=== PATIENT | female | born 1990 | race Caucasian/White ===

== ENCOUNTER 2019-11-17 11:58 | Emergency (ER) | payer OTHER ==
[2019-11-17 12:03] VITALS: BP 115/75; PULSE 79; RESP 18; TEMP 99
--- NOTE | 2019-11-17 12:21 | ED ---
Nausea/Vomiting/Diarrhea HPI - General Chief complaint: Nausea/Vomiting/Diarrhea Stated complaint: chest congestion Time Seen by Provider: 11/17/19 12:10 Source: patient Mode of arrival: ambulatory Limitations: no limitations - History of Present Illness Initial comments: 29-year-old female presenting today for chief complaint cough sore throat congestion 5 days. Patient states she has had cough congestion sore throat. Patient states has been ongoing for 5 days. Patient states sometimes she coughs so hard she vomits denies spontaneous vomiting abdominal pain. Patient states she has had chills. Patient denies any hematemesis hemoptysis leg swelling. Patient denies a chest pain unless she has a hard coughing spell. Remaining review of systems negative upon arrival patient appears well no signs acute distress patient denies . - Related Data Allergies Allergy/AdvReac Type Severity Reaction Status Date / Time No Known Allergies Allergy Verified 11/17/19 12:01 Review of Systems ROS Statement: Those systems with pertinent positive or pertinent negative responses have been documented in the HPI. ROS Other: All systems not noted in ROS Statement are negative. Past Medical History Past Surgical History: Tonsillectomy Past Psychological History: No Psychological Hx Reported Smoking Status: Never smoker Past Alcohol Use History: None Reported Past Drug Use History: None Reported General Exam - General Exam Comments Initial Comments: General: The patient is awake and alert, in no distress, and does not appear acutely ill. Eye: +3 mm pupils are equal, round and reactive to light, extra-ocular movements are intact. No nystagmus. There is normal conjunctiva bilaterally. No signs of icterus. No photophobia Ears, nose, mouth and throat: There are moist mucous membranes and no oral lesions. Oropharynx was not erythematous there is no tonsillar enlargement exudates or lesions. Uvula midline. Tympanic membranes are not erythematous or is no effusions bulging or retraction. No tenderness to palpation of the mastoid. No anterior cervical lymphadenopathy. Rhinorrhea, clear and bilateral nares. No tripoding, no drooling. Neck: The neck is supple, there is no tenderness or JVD. No nuchal rigidity negative Brudzinski and Kernig Cardiovascular: There is a regular rate and rhythm. No murmur, rub or gallop is appreciated. Respiratory: Lungs are clear to auscultation, respirations are non-labored, breath sounds are equal. No wheezes, stridor, rales, or rhonchi. No retractions or abdominal breathing. Gastrointestinal: Soft, non-distended, non-tender abdomen without masses or organomegaly noted. There is no rebound or guarding present. Bowel sounds are unremarkable. Musculoskeletal: Normal ROM, no tenderness. Strength 5/5. Sensation intact. Radial pulses equal bilaterally 2+. Neurological: A&O x 3. CN II-XII intact, There are no obvious motor or sensory deficits. Coordination appears grossly intact. Speech appears normal, no muffling. Skin: Skin is warm and dry and no rashes or lesions are noted. No extremity edema Psychiatric: Cooperative Limitations: no limitations Course Vital Signs 11/17/19 12:01 Temperature 99 F Pulse Rate 79 Respiratory 18 Rate Blood Pressure 115/75 O2 Sat by Pulse 97 Oximetry Medical Decision Making - Medical Decision Making 29yo female presenting today for cough post tussis emesis sore throat. Chest x- ray clear. Influenza testing positive. Patient's lung sounds clear she does not appear toxic vital signs stable I feel she is stable for discharge with symptomatic treatment as patient is out of the 48 hour window forTamiflu.Patie ntisagreeabletothiscareplancasediscussedwithattendingproviderDr. Adair - Lab Data Lab Results 11/17/19 Range/Units 12:40 Influenza Type A RNA Not Detected (Not Detectd) Influenza Type B (PCR) Detected H (Not Detectd) Disposition Clinical Impression: Influenza B, Cough Disposition: HOME SELF-CARE Condition: Good Instructions (If sedation given, give patient instructions): Influenza (ED) Additional Instructions: Please use medication as discussed. Please follow-up with family doctor in the next 2 days.. Please return to emergency room if the symptoms increase or worsen or for any other concerns. Is patient prescribed a controlled substance at d/c from ED?: No Referrals: Arsh Justin DO [Primary Care Provider] - 1-2 days Time of Disposition: 13:25
--- NOTE | 2019-11-17 13:02 | XR ---
EXAMINATION TYPE: XR chest 2V DATE OF EXAM: 11/17/2019 COMPARISON: NONE HISTORY: Cough congestion and chest pain. TECHNIQUE: Frontal and lateral views of the chest are obtained. FINDINGS: There is no focal air space opacity, pleural effusion, or pneumothorax seen. The cardiac silhouette size is within normal limits. The osseous structures are intact. IMPRESSION: No acute cardiopulmonary process.
== END 2019-11-17 13:38 | disposition home or self-care (01) ==
LOC: EC 11:58
DX: J10.1 Influenza due to other identified influenza virus with other respiratory manifestations (principal); R11.2 Nausea with vomiting, unspecified; R19.7 Diarrhea, unspecified
CPT/HCPCS: 71046; 87502; 99284

== ENCOUNTER → 2024-02-17 | Outpatient (CLI) | payer OTHER ==
--- NOTE | 2024-02-20 08:17 | MM ---
Reason for Exam: Screening (asymptomatic). Baseline mammogram. Patient History: Menarche at age 12. First Full-Term at age 20. Patient has history of breast feeding. Last menstrual period: 02/03/2024 Risk Values: Lori 5 year model risk: 0.3%. NCI Lifetime model risk: 8.4%. Prior Study Comparison: Patient's first Mammogram. Tissue Density: The breasts are extremely dense, which lowers the sensitivity of mammography. Findings: Analyzed By CAD. The pattern is symmetrical. There may be a focal asymmetry within the right breast. Additional evaluation with compression view is recommended. Left breast:No suspicious groups of microcalcifications, spiculated or lobular masses, architectural distortion or other secondary signs of malignancy are mammographically apparent. Overall Assessment: Incomplete: need additional imaging evaluation, BI-RAD 0 Management: Diagnostic Mammogram of the right breast. A negative mammogram report should not preclude additional follow up of suspicious palpable abnormalities. Patient should continue monthly self breast exam. A clinical breast exam by your physician is recommended on an annual basis and results should be correlated with mammographic findings. Electronically signed and approved by: Joon Goff D.O. Radiologis
== END | disposition home or self-care (01) ==
LOC: RADMAMWWP 10:50
PROVIDERS: ATTEND Family Medicine
DX: Z12.31 Encounter for screening mammogram for malignant neoplasm of breast (principal)
CPT/HCPCS: 77067

== ENCOUNTER → 2024-03-15 | Outpatient (CLI) | payer OTHER ==
--- NOTE | 2024-03-15 14:27 | MM ---
Reason for Exam: Additional evaluation requested from abnormal screening. Last screening mammogram was performed less than 1 month ago. Patient History: Menarche at age 12. First Full-Term at age 20. Patient has history of breast feeding. Risk Values: Lori 5 year model risk: 0.3%. NCI Lifetime model risk: 8.4%. Prior Study Comparison: 02/17/2024 Bilateral MG screening mammo w CAD, [facility]. Tissue Density: Right: The breasts are heterogeneously dense, which may obscure small masses. Findings: Analyzed By CAD. No evidence for mass or distortion. Overall Assessment: Negative, BI-RAD 1 Management: Screening Mammogram of both breasts in 1 year. . Results were given to the patient verbally at the time of exam. Patient should continue monthly self-breast exams. A clinical breast exam by your physician is recommended on an annual basis. This exam should not preclude additional follow-up of suspicious palpable abnormalities. Note on Lori scores and lifetime risk: 1. A Lori score greater than 3% is considered moderate risk. If this is the case, consider specialist referral to assess eligibility for a risk reducing agent. 2. If overall lifetime risk for the development of breast cancer is 20% or higher, the patient may qualify for future screening with alternating mammogram and breast MRI. Electronically signed and approved by: Raza Chris M.D. Radiologis
== END | disposition home or self-care (01) ==
LOC: RADMAMWWP 14:08
PROVIDERS: ATTEND Family Medicine
DX: R92.331 Mammographic heterogeneous density, right breast (principal)
CPT/HCPCS: 77065; G0279; 77061

== ENCOUNTER 2024-10-01 12:22 | Emergency (ER) | payer OTHER ==
[2024-10-01 12:58] LABS: Basophils % (A) 0 %; Eosinophils # (A) 0.1 k/uL (0-0.7); Eosinophils % (A) 1 %; HCT 41.6 % (34.0-46.0); Lymphocytes # (A) 0.6 k/uL (1.0-4.8); Lymphocytes % (A) 11 %; MCH 30.5 pg (25.0-35.0); MCHC 33.6 g/dL (31.0-37.0); MCV 90.8 fL (80.0-100.0); Mean Platelet Volume 7.8; Monocytes # (A) 0.2 k/uL (0-1.0); Monocytes % (A) 3 %; Neutrophils # (A) 4.4 k/uL (1.3-7.7); Neutrophils % (A) 83 %; Platelet Count 155 k/uL (150-450); RBC 4.59 m/uL (3.80-5.40); RDW 13.3 % (11.5-15.5); WBC 5.3 k/uL (3.8-10.6)
[2024-10-01 13:26] LABS: ALT 21 U/L (4-34); AST 30 U/L (14-36); African American GFR (CKD) >90 (>60 ml/min/1.73 sqM); Albumin 4.8 g/dL (3.5-5.0); Alkaline Phosphatase 24 U/L (38-126); Amylase 45 U/L (30-110); Anion Gap 10 mmol/L; Appearance,Urine Cloudy (Clear); Bilirubin,Urine Negative (Negative); Blood Urea Nitrogen 7 mg/dL (7-17); Blood,Urine Trace (Negative); Calcium 9.2 mg/dL (8.4-10.2); Carbon Dioxide 26 mmol/L (22-30); Chloride 102 mmol/L (98-107); Color,Urine Yellow; Glucose 101 mg/dL (74-99); Glucose,Urine (UA) Negative (Negative); Ketones,Urine 2+ (Negative); Leukocyte Esterase,Urine Small (Negative); Lipase 70 U/L (23-300); Mucus,Urine Many /hpf; Nitrite,Urine Negative (Negative); Non-African American GFR(CKD) >90 (>60 ml/min/1.73 sqM); Potassium 4.3 mmol/L (3.5-5.1); Protein,Urine 1+ (Negative); RBC,Urine 2 /hpf (0-5); Sodium 138 mmol/L (137-145); Specific Gravity,Urine 1.038 (1.001-1.035); Squamous Epithelial Cell,Urine 16 /hpf (0-4); Total Bilirubin 0.4 mg/dL (0.2-1.3); Total Protein 8.1 g/dL (6.3-8.2); Urobilinogen,Urine <2.0 mg/dL (<2.0); WBC,Urine 13 /hpf (0-5)
--- NOTE | 2024-10-01 14:11 | ED ---
Abdominal Pain HPI - General Source: patient, RN notes reviewed Mode of arrival: ambulatory Limitations: no limitations <Lexis Black - Last Filed: 10/01/24 14:10> <Ethel Martin - Last Filed: 10/03/24 13:08> - General Chief Complaint: Abdominal Pain Stated Complaint: abd pain Time Seen by Provider: 10/01/24 12:38 - History of Present Illness Initial Comments: Quick note34 old female presenting to the emergency room chief complaint of right lower abdominal pain, cramping, nausea and vomiting over the past 4 days. Denies previous surgical abdominal history. (Lexis Black) 34-year-old female presents emergency department reporting right lower quadrant abdominal pain. States that her kids have been sick and she does believe that she caught an illness from them. She has had abdominal cramping, nausea and vomiting for the past 4 days. No associated fevers. Denies hematemesis. No chest pain or difficulty breathing. Denies any changes in her urination to include dysuria, hematuria or difficulty voiding. No black or bloody stools. She denies any abnormal vaginal bleeding or discharge. No concern for . States "I know this is not my female parts giving me problems, I know it is something else." She denies concern for sexually transmitted infections. No history of abdominal surgeries. She does admit to a cough. no other alleviating, precipitating or modifying factors (Ethel Martin) - Related Data Previous Rx's Medication Instructions Recorded Albuterol Inhaler [Ventolin Hfa 2 puff INHALATION QID #8 gm 10/01/24 Inhaler] Azithromycin [Zithromax] 250 mg PO DAILY 1 Days #4 tab 10/01/24 Allergies Allergy/AdvReac Type Severity Reaction Status Date / Time No Known Allergies Allergy Verified 11/17/19 12:01 Review of Systems ROS Other: All systems not noted in ROS Statement are negative. <Lexis Black - Last Filed: 10/01/24 14:10> ROS Other: All systems not noted in ROS Statement are negative. <Ethel Martin - Last Filed: 10/03/24 13:08> ROS Statement: Those systems with pertinent positive or pertinent negative responses have been documented in the HPI. Past Medical History Past Medical History: No Reported History Past Surgical History: Tonsillectomy Past Psychological History: No Psychological Hx Reported Past Alcohol Use History: None Reported Past Drug Use History: None Reported <WayneLexis - Last Filed: 10/01/24 14:10> General Exam Limitations: no limitations <MiguelstevoCharity pattonoe - Last Filed: 10/01/24 14:10> General appearance: alert, in no apparent distress Head exam: Present: atraumatic, normocephalic, normal inspection Eye exam: Present: normal appearance, PERRL, EOMI. Absent: scleral icterus, con junctival injection, periorbital swelling ENT exam: Present: normal exam, mucous membranes moist Neck exam: Present: normal inspection. Absent: tenderness, meningismus, lymphadenopathy Respiratory exam: Present: normal lung sounds bilaterally. Absent: respiratory distress, wheezes, rales, rhonchi, stridor Cardiovascular Exam: Present: regular rate, normal rhythm, normal heart sounds. Absent: systolic murmur, diastolic murmur, rubs, gallop, clicks GI/Abdominal exam: Present: soft, tenderness (Right periumbilical), normal bowel sounds. Absent: distended, guarding, rebound, rigid Extremities exam: Present: normal inspection, full ROM, normal capillary refill. Absent: tenderness, pedal edema, joint swelling, calf tenderness Back exam: Present: normal inspection Neurological exam: Present: alert, oriented X3, CN II-XII intact Psychiatric exam: Present: normal affect, normal mood Skin exam: Present: warm, dry, intact, normal color. Absent: rash <Ethel Martin - Last Filed: 10/03/24 13:08> - General Exam Comments Initial Comments: Visual Physical Exam Vital signs reviewed General: Well-appearing, nontoxic, no acute distress. Head: Normocephalic, atraumatic Eyes: PERRLA, EOMI ENT: Airway patent Chest: Nonlabored breathing Skin: No visual rash, normal skin tone Neuro: Alert and oriented 3 Musculoskeletal: No gross abnormalities (Stieler,Lexis) Course Vital Signs 10/01/24 10/01/24 12:28 16:25 Temperature 98.3 F 100.2 F H Pulse Rate 101 H 97 Respiratory 20 19 Rate Blood Pressure 137/84 102/69 O2 Sat by Pulse 97 98 Oximetry Medical Decision Making - Lab Data Result diagrams: 10/01/24 12:33 10/01/24 12:33 <Lexis Black - Last Filed: 10/01/24 14:10> - Lab Data Result diagrams: 10/01/24 12:33 10/01/24 12:33 <Ethel Martin - Last Filed: 10/03/24 13:08> - Medical Decision Making I completed the quick note portion of this chart signed Lexis Black PA-C (Lexis Black) Was pt. sent in by a medical professional or institution ([facility], [facility], urgent care, hospital, or senior care...) When possible be specific @ -No Did you speak to anyone other than the patient for history (EMS, parent, family, police, friend...)? What history was obtained from this source @ -No Did you review nursing and triage notes (agree or disagree)? Why? @ -I reviewed and agree with nursing and triage notes Were old charts reviewed (outside hosp., previous admission, EMS record, old EKG, old radiological studies, urgent care reports/EKG's, senior care records)? Report findings @ -No old charts were reviewed Differential Diagnosis (chest pain, altered mental status, abdominal pain women, abdominal pain men, vaginal bleeding, weakness, fever, dyspnea, syncope, headache, dizziness, GI bleed, back pain, seizure, CVA, palpatations, mental health, musculoskeletal)? @ -Differential Abdominal Pain Women: Appendicitis, Cholecystitis, diverticulosis, ischemic bowel, pancreatitis, hepatitis, UTI, gastroenteritis, AAA, incarcerated hernia, bowel obstruction, constipation, inflammatory bowel, hepatitis, peptic ulcer disease, splenic infarction, perforated viscus, vulvitis, ovarian torsion, PID, kidney stone, placenta abruption, this is not meant to be an all-inclusive list EKG interpreted by me (3pts min.). @ -Not done X-rays interpreted by me (1pt min.). @ -None done CT interpreted by me (1pt min.). @ -Yes and demonstrates signs concerning for pneumonia in the right lung U/S interpreted by me (1pt. min.). @ -None done What testing was considered but not performed or refused? (CT, X-rays, U/S, labs)? Why? @ -Ultrasound of the pelvis was recommended however patient refused as she states "my female organs are not the cause of my symptoms. I have never had cysts or anything" What meds were considered but not given or refused? Why? @ -None Did you discuss the management of the patient with other professionals (professionals i.e. , PA, FILLER WIPER, lab, RT, psych nurse, social sciences instructor, safety equipment tester, teacher, correctional program officer, keycase assembler)? Give summary @ -No Was smoking cessation discussed for >3mins.? @ -No Was critical care preformed (if so, how long)? @ -No Were there social determinants of health that impacted care today? How? (Homelessness, low income, unemployed, alcoholism, drug addiction, transportation, low edu. Level, literacy, decrease access to med. care, long-term, rehab)? @ -No Was there de-escalation of care discussed even if they declined (Discuss DNR or withdrawal of care, Hospice)? DNR status @ -No What co-morbidities impacted this encounter? (DM, HTN, Smoking, COPD, CAD, Cancer, CVA, ARF, Chemo, Hep., AIDS, mental health diagnosis, sleep apnea, morbid obesity)? @ -None Was patient admitted / discharged? Hospital course, mention meds given and route, prescriptions, significant lab abnormalities, going to OR and other pertinent info. @ -Upon arrival patient seen and evaluated in hallway 10. Thorough history and physical exam was performed. IV access was established. Patient was given intravenous fluids, 15 mg of Toradol and 4 mg of Zofran. Laboratory studies are conducted. CT was performed. CT does demonstrate possible pneumonia. I did discuss this with the patient and she does admit that she has clinical symptoms of pneumonia including chest pain and a cough. I instructed that we should treat if she is having clinical symptoms. She was given a dose of Rocephin and azithromycin. Patient be discharged home on azithromycin and an albuterol inhaler. Urinalysis is not a clean-catch. He demonstrates no bacteria however due to the appearance of the laboratory studies it was sent for urine culture which we will evaluate and treat the patient accordingly. Patient has no clinical symptoms of UTI including frequency or hematuria and therefore we will not empirically treat at this time. Patient was agreeable with this plan. She is to follow-up with her primary care doctor in 2 to 4 days. She needs to ensure that her symptoms are improving. Repeat a urine sample that is a clean- catch within the next week. Return to the emergency department for any new or worsening symptoms. Patient was agreeable this plan she was discharged home in stable condition Undiagnosed new problem with uncertain prognosis? @ -Yes Drug Therapy requiring intensive monitoring for toxicity (Heparin, Nitro, Insulin, Cardizem)? @ -No Were any procedures done? @ -No Diagnosis/symptom? @ -Acute right lower quadrant pain, acute right sided pneumonia, abnormal UA Acute, or Chronic, or Acute on Chronic? @ -Acute Uncomplicated (without systemic symptoms) or Complicated (systemic symptoms)? @ -Complicated Side effects of treatment? @ -No Exacerbation, Progression, or Severe Exacerbation? @ -No Poses a threat to life or bodily function? How? (Chest pain, USA, IA, pneumonia, PE, COPD, DKA, ARF, appy, cholecystitis, CVA, Diverticulitis, Homicidal, Suicidal, threat to staff... and all critical care pts) @ -No (Ethel Martin) - Lab Data Lab Results 10/01/24 10/01/24 10/01/24 Range/Units 12:33 12:33 12:33 WBC 5.3 (3.8-10.6) k/uL RBC 4.59 (3.80-5.40) m/uL Hgb 14.0 (11.4-16.0) gm/dL Hct 41.6 (34.0-46.0) % MCV 90.8 (80.0-100.0) fL MCH 30.5 (25.0-35.0) pg MCHC 33.6 (31.0-37.0) g/dL RDW 13.3 (11.5-15.5) % Plt Count 155 (150-450) k/uL MPV 7.8 Neutrophils % 83 % Lymphocytes % 11 % Monocytes % 3 % Eosinophils % 1 % Basophils % 0 % Neutrophils # 4.4 (1.3-7.7) k/uL Lymphocytes # 0.6 L (1.0-4.8) k/uL Monocytes # 0.2 (0-1.0) k/uL Eosinophils # 0.1 (0-0.7) k/uL Basophils # 0.0 (0-0.2) k/uL Sodium (137-145) mmol/L Potassium (3.5-5.1) mmol/L Chloride (98-107) mmol/L Carbon Dioxide (22-30) mmol/L Anion Gap mmol/L BUN (7-17) mg/dL Creatinine (0.52-1.04) mg/dL Est GFR (CKD-EPI)AfAm (>60 ml/min/1.73 sqM) Est GFR (CKD-EPI)NonAf (>60 ml/min/1.73 sqM) Glucose (74-99) mg/dL Plasma Lactic Acid Imtiaz (0.7-2.0) mmol/L Calcium (8.4-10.2) mg/dL Total Bilirubin (0.2-1.3) mg/dL AST (14-36) U/L ALT (4-34) U/L Alkaline Phosphatase (38-126) U/L Total Protein (6.3-8.2) g/dL Albumin (3.5-5.0) g/dL Amylase (30-110) U/L Lipase (23-300) U/L Urine Color Yellow Urine Appearance Cloudy H (Clear) Urine pH 6.0 (5.0-8.0) Ur Specific [place] 1.038 H (1.001-1.035) Urine Protein 1+ H (Negative) Urine Glucose (UA) Negative (Negative) Urine Ketones 2+ H (Negative) Urine Blood Trace H (Negative) Urine Nitrite Negative (Negative) Urine Bilirubin Negative (Negative) Urine Urobilinogen <2.0 (<2.0) mg/dL Ur Leukocyte Esterase Small H (Negative) Urine RBC 2 (0-5) /hpf Urine WBC 13 H (0-5) /hpf Ur Squamous Epith Cells 16 H (0-4) /hpf Urine Mucus Many H (None) /hpf Urine HCG, Qual Not Detected (Not Detectd) 10/01/24 10/01/24 Range/Units 12:33 12:33 WBC (3.8-10.6) k/uL RBC (3.80-5.40) m/uL Hgb (11.4-16.0) gm/dL Hct (34.0-46.0) % MCV (80.0-100.0) fL MCH (25.0-35.0) pg MCHC (31.0-37.0) g/dL RDW (11.5-15.5) % Plt Count (150-450) k/uL MPV Neutrophils % % Lymphocytes % % Monocytes % % Eosinophils % % Basophils % % Neutrophils # (1.3-7.7) k/uL Lymphocytes # (1.0-4.8) k/uL Monocytes # (0-1.0) k/uL Eosinophils # (0-0.7) k/uL Basophils # (0-0.2) k/uL Sodium 138 (137-145) mmol/L Potassium 4.3 (3.5-5.1) mmol/L Chloride 102 (98-107) mmol/L Carbon Dioxide 26 (22-30) mmol/L Anion Gap 10 mmol/L BUN 7 (7-17) mg/dL Creatinine 0.61 (0.52-1.04) mg/dL Est GFR (CKD-EPI)AfAm >90 (>60 ml/min/1.73 sqM) Est GFR (CKD-EPI)NonAf >90 (>60 ml/min/1.73 sqM) Glucose 101 H (74-99) mg/dL Plasma Lactic Acid Imtiaz 1.1 (0.7-2.0) mmol/L Calcium 9.2 (8.4-10.2) mg/dL Total Bilirubin 0.4 (0.2-1.3) mg/dL AST 30 (14-36) U/L ALT 21 (4-34) U/L Alkaline Phosphatase 24 L (38-126) U/L Total Protein 8.1 (6.3-8.2) g/dL Albumin 4.8 (3.5-5.0) g/dL Amylase 45 (30-110) U/L Lipase 70 (23-300) U/L Urine Color Urine Appearance (Clear) Urine pH (5.0-8.0) Ur Specific [place] (1.001-1.035) Urine Protein (Negative) Urine Glucose (UA) (Negative) Urine Ketones (Negative) Urine Blood (Negative) Urine Nitrite (Negative) Urine Bilirubin (Negative) Urine Urobilinogen (<2.0) mg/dL Ur Leukocyte Esterase (Negative) Urine RBC (0-5) /hpf Urine WBC (0-5) /hpf Ur Squamous Epith Cells (0-4) /hpf Urine Mucus (None) /hpf Urine HCG, Qual (Not Detectd) Disposition <Lexis Black - Last Filed: 10/01/24 14:10> Is patient prescribed a controlled substance at d/c from ED?: No Time of Disposition: 16:05 <Ethel Martin Ric - Last Filed: 10/03/24 13:08> Clinical Impression: Nausea, Fever, Abdominal pain, Pneumonia Disposition: HOME SELF-CARE Condition: Stable Instructions (If sedation given, give patient instructions): Bacterial Pneumonia (ED) Additional Instructions: Please take the antibiotic starting tomorrow. Use the inhaler every 4 hours. May take Motrin alternating with Tylenol every 4 hours for pain control. Increase your fluid intake. Follow-up with your doctor for reevaluation of your symptoms within 2 to 4 days. Return for any new or worsening symptoms. Prescriptions: Albuterol Inhaler [Ventolin Hfa Inhaler] 2 puff INHALATION QID #8 gm Azithromycin [Zithromax] 250 mg PO DAILY 1 Days #4 tab Referrals: Cherie Hussein DO [Primary Care Provider] - 1-2 days
--- NOTE | 2024-10-01 15:17 | CT ---
EXAMINATION TYPE: CT abdomen pelvis w con DATE OF EXAM: 10/01/2024 3:04 PM COMPARISON: None CLINICAL INDICATION: Female, 34 years old with history of RLQ ab pain; RLQ ab pain TECHNIQUE: Axial CT abdomen pelvis w con;Sagittal and coronal reformats were created on a separate w orkstation. Contrast used:100ml mL of Isovue 300 with IV Contrast, (none if empty) Oral contrast used: without Oral Contrast (none if empty) CT DLP: 686.6 mGycm, Automated exposure control for dose reduction was used. FINDINGS: LOWER CHEST: Right middle lobe consolidation. ABDOMEN LIVER: Unremarkable GALLBLADDER AND BILE DUCTS: Unremarkable. PANCREAS: Unremarkable. SPLEEN: Unremarkable. ADRENAL GLANDS: Unremarkable. KIDNEYS AND URETERS: No evidence of hydronephrosis or renal calculus. The ureters are unremarkable. PELVIS BLADDER: No evidence for wall thickening or mass given limitations of exam. REPRODUCTIVE: Intrauterine device seen within the endometrium. ABDOMEN & PELVIS STOMACH AND BOWEL: No evidence of bowel obstruction. The appendix is visualized and normal. PERITONEUM/RETROPERITONEUM: No evidence of pneumoperitoneum or free fluid. VASCULATURE: No evidence of aortic aneurysm. MUSCULOSKELETAL: No acute osseous abnormalities LYMPH NODES: No gross evidence for lymphadenopathy. SOFT TISSUE/ABDOMINAL WALL: Unremarkable IMPRESSION: 1. Right middle lobe consolidation correlate for pneumonia. 2. Normal-appearing appendix. No evidence for obstructive uropathy or renal calculus. No acute right lower quadrant process to explain the patient's pain. 3. IUD in appropriate position. [facility], , 10/01/2024 3:14 PM
[2024-10-01] MEDS: cefTRIAXone IN SWFI 1,000 MG/10 ML SYRINGE IVP STA (16:07)
[2024-10-01] MEDS: SODIUM CHLORIDE 0.9% 1,000 ML IV ONE (16:10)
[2024-10-01] MEDS: ONDANSETRON 4 MG/2 ML VIAL IVP STA (16:11)
[2024-10-01] MEDS: KETOROLAC 15 MG/ML 1 ML VIAL IVP STA (16:12)
[2024-10-01] MEDS: AZITHROMYCIN 500 MG TAB PO STA (16:16)
[2024-10-01 16:26] VITALS: BP 102/69; PULSE 97; RESP 19; TEMP 100.2
== END 2024-10-01 17:19 | disposition home or self-care (01) ==
LOC: EC 12:22
DX: J18.9 Pneumonia, unspecified organism (principal); R10.31 Right lower quadrant pain; R82.90 Unspecified abnormal findings in urine; B95.1 Streptococcus, group B, as the cause of diseases classified elsewhere; B95.61 Methicillin susceptible Staphylococcus aureus infection as the cause of diseases classified elsewhere
CPT/HCPCS: 36415; 80053; 82150; 83605; 83690; 85025; 81001; 81025; 87086; 87077; 87186; 74177; 99284; 96374; 96375 ×2; 96361; J2405; J0696; J1885; Q9967